=== PATIENT | male | born 1985 | race Two or more races ===

== ENCOUNTER 2018-06-02 19:30 | Emergency (ER) | payer OTHER ==
[2018-06-02] MEDS ORDERED: IBUPROFEN 600 MG TABLET (FP) PO ONE ×2 (19:45→19:47)
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
[2018-06-02 20:00] VITALS: BP 129/78; PULSE 72; TEMP 97.8; BMI 25.8
== END 2018-06-02 20:14 | disposition home or self-care (01) ==
LOC: FER 19:30
DX: S90.32XA Contusion of left foot, initial encounter (principal); S16.1XXA Strain of muscle, fascia and tendon at neck level, initial encounter; V43.52XA Car driver injured in collision with other type car in traffic accident, initial encounter; Y93.89 Activity, other specified; Y92.410 Unspecified street and highway as the place of occurrence of the external cause
CPT/HCPCS: 99282-25